=== PATIENT | male | born 1995 | race Caucasian/White ===

== ENCOUNTER 2016-04-19 11:44 | Emergency (ER) | payer BC ==
[2016-04-19] MEDS ORDERED: KETOROLAC 30 MG/ML VIAL (J1885) As Ordered ONE (12:20)
[2016-04-19 12:27] LABS: BASO % 0.1 % (0.0-1.0); EOS # 0.1 K/mm3 (0.0-0.50); EOS % 0.8 % (0.0-3.0); LARGE UNSTAINED CELL # 0.2 K/mm3 (0.0-0.4); LARGE UNSTAINED CELL % 1.4 % (0.0-4.0); LYMPH # 1.1 K/mm3 (1.5-6.5); LYMPH % 9.4 % (24.0-44.0); MEAN CORPUSCULAR HEMOGLOBIN 30.9 pg (27.0-33.0); MEAN CORPUSCULAR HGB CONC 34.2 g/dl (32.0-36.5); MEAN CORPUSCULAR VOLUME 90.3 fl (80.0-96.0); MONO # 0.6 K/mm3 (0.0-0.8); MONO % 4.8 % (0.0-5.0); NEUTROPHILS # 9.8 K/mm3 (1.8-7.7); NEUTROPHILS % 83.5 % (36.0-66.0); PLATELET COUNT, AUTOMATED 253 k/mm3 (150-450); RED CELL DISTRIBUTION WIDTH 11.5 % (11.5-14.5); WHITE BLOOD COUNT 11.8 K/mm3 (4.0-10.0)
[2016-04-19 12:51] LABS: ALBUMIN 4.3 GM/DL (3.2-5.2); ALBUMIN/GLOBULIN RATIO 1.26 (1.00-1.93); ALKALINE PHOSPHATASE 99 U/L (45-117); ALT/SGPT 29 U/L (12-78); AMYLASE 62 U/L (25-115); ANION GAP 7 MEQ/L (8-16); AST/SGOT 23 U/L (15-37); BILIRUBIN,DIRECT 0.2 MG/DL (0.0-0.2); BILIRUBIN,TOTAL 0.7 MG/DL (0.2-1.0); BLOOD UREA NITROGEN 20 MG/DL (7-18); CALCIUM LEVEL 8.8 MG/DL (8.5-10.1); CARBON DIOXIDE LEVEL 29 MEQ/L (21-32); CHLORIDE LEVEL 104 MEQ/L (98-107); CREATININE FOR GFR 1.13 MG/DL (0.70-1.30); GLUCOSE, FASTING 115 MG/DL (70-105); POTASSIUM SERUM 3.7 MEQ/L (3.5-5.1); SODIUM LEVEL 140 MEQ/L (136-145); TOTAL PROTEIN 7.7 GM/DL (6.4-8.2)
[2016-04-19] MEDS ORDERED: ISOVUE-370 76% 100ML VIAL (Q9967) As Ordered ONE (13:04)
--- NOTE | 2016-04-19 13:33 | REP ---
CT STUDY OF THE ABDOMEN AND PELVIS WITHOUT ORAL BUT WITH IV CONTRAST: HISTORY: Question early appendicitis. Abdominal pain. Generalized upper abdominal pain. Comparison CT study is from January 16, 2015 done at [facility]. CT CONTRAST DOSE: 100 mL of Isovue-[address] FINDINGS: Digital cuff presser radiograph is unremarkable. The lung bases are clear. The liver and the spleen are homogeneous in texture. The spleen is borderline in size measuring 12.5 cm in greatest dimension. Gallbladder and pancreas are unremarkable. No adrenal lesion is seen. The kidneys enhance symmetrically and are morphologically intact. No retroperitoneal mass or adenopathy is seen. Small and large intestinal bowel loops are normal in the abdomen and pelvis. Seminal vesicles, prostate, and urinary bladder are intact and unremarkable. No abdominal wall defect is seen. A normal appendix is seen in the right pelvis. There is no inflammation, fluid distension, or wall thickening to suggest appendicitis. No free fluid is seen. No evidence of free air seen. IMPRESSION: Borderline size spleen, 12.5 cm. Normal appendix seen. Otherwise, unremarkable CT study of the abdomen and pelvis with IV contrast. Signed by Myron Atkins MD 04/19/2016 02:35 P
--- NOTE | 2016-04-19 13:52 | EDDOCDS ---
Physician Documentation [facility] Name: Ford Pulido Age: 20 yrs Sex: Male : 1995 Arrival Date: 04/19/2016 Time: 11:44 Bed I4 / M4 Private MD: Rubén Mcintyre Disposition: 04/19/16 13:38 Discharged to Home/Self Care. Impression: Unspecified abdominal pain. - Condition is Stable. - Discharge Instructions: Abdominal Pain, Adult. - Medication Reconciliation, Local Pharmacy Hours form. - Follow up: Rubén Mcintyre; When: As needed; Reason: Recheck today's complaints, Continuance of care. Follow up: Emergency Department; When: As needed; Reason: Fever > 102F, Worsening of conditions. - Problem is new. - Symptoms have improved. - Notes: avoid contact sports for the next few weeks due to borderline enlarged spleen seen on CT scan. call to schedule a follow up appointment for a recheck with Dr. Mcintyre. return to ER if worsening symptoms Historical: - Allergies: No known drug Allergies; - Home Meds: 1. none - PMHx: none; - PSHx: none; - Social history: Smoking status: Patient states was never smoker of tobacco. No barriers to communication noted, The patient speaks fluent Latvian, Speaks appropriately for age. - Family history: Not pertinent. - : The pt / caregiver states he / she is not on anticoagulants. Home medication list is obtained from the patient, family members. - Exposure Risk Screening:: None identified. Vital Signs: 04/19 11:46 BP 120 / 83; Pulse 108; Resp 18 S; Temp 96.6(O); Pulse Ox 100% on R/A; Weight 58.97 kg gr2 / 130.01 lbs (R); Height 5 ft. 6 in. (167.64 cm) (R); Pain 8/10; 12:56 Pain 0/10; ck1 13:44 BP 110 / 68; Pulse 94; Resp 16; Temp 99.0; Pulse Ox 99% ; Pain 0/10; jam1 11:46 Body Mass Index 20.98 (58.97 kg, 167.64 cm) gr2 MDM: 12:06 Undress patient appropriately for examination ordered. ar2 12:06 IV Saline Lock ordered. ar2 12:06 NS 0.9% 1000 ml IV at bolus once ordered. ar2 12:06 ketorolac 30 mg IVP once ordered. ar2 12:08 Amylase Ordered. EDMS 12:08 Basic Metabolic Profile Ordered. EDMS 12:08 CBC with Diff Ordered. EDMS 12:08 Lipase Ordered. EDMS 12:08 Liver Profile Ordered. EDMS 12:08 NOTHING BY MOUTH+DIET ordered. EDMS 12:55 [facility] Payment Agreement was scanned into [employer] and attached to record. jp5 12:56 Financial registration complete. jp5 12:59 Basic Metabolic Profile Reviewed. ar2 12:59 CBC with Diff Reviewed. ar2 12:59 Amylase Reviewed. ar2 12:59 Lipase Reviewed. ar2 12:59 Liver Profile Reviewed. ar2 13:01 CT ABD & PELVIS: IV Contrast Only Ordered. EDMS Administered Medications: 12:24 Drug: NS 0.9% 1000 ml [sodium chloride 0.9 % intravenous solution] Route: IV; Rate: ck1 bolus; Site: right antecubital; 13:51 Follow up: IV Status: Completed infusion; IV Intake: 1000ml [facility] 12:24 Drug: ketorolac 30 mg [ketorolac 30 mg/mL (1 mL) injection solution (1 mL)] Route: IVP; ck1 Site: right antecubital; 12:56 Follow up: Pain 0/10 Adult; Response: Pain is resolved ck1 Signatures: Dispatcher [employer] Maria Esther Gerard RN MAXI [facility] Kaitlynn Cage RN RN ck1 Jerome Fall PA-C PADilma ar2 Deonna Tyler RN RN 1 Jeffery Dominguez jp5 The chart was reviewed and I authenticate all verbal orders and agree with the evaluation and treatment provided.Attachments: 12:55 [facility] Payment Agreement jp5 MTDD
--- NOTE | 2016-04-19 13:52 | EDDOCDS ---
Nurse's Notes [facility] Name: Ford Pulido Age: 20 yrs Sex: Male : 1995 Arrival Date: 04/19/2016 Time: 11:44 Bed I4 / M4 Private MD: Rubén Mcintyre Diagnosis: Unspecified abdominal pain Presentation: 04/19 11:54 Presenting complaint: Patient states: this morning around 830 had abdominal pains and hs1 an hour later intensified and patient states and is now constant. Patient points to upper right quadrant. Risk factors: the patient reports not having a history of previous torsion. Adult Sepsis Screening: The patient does not have new or worsening altered mentation. Patient's respiratory rate is less than 22. Systolic blood pressure is greater than 100. Patient has a qSOFA score of 0- Negative Sepsis Screen. Suicide/Homicide risk assessment- the patient denies having any suicidal and/or homicidal ideations and does not present with any other emotional, behavioral or mental health complaints. Status: Patient is not a hr shared services consultant or dependent. Transition of care: patient was not received from another setting of care. 11:54 Acuity: ANAID Level 3 hs1 11:54 Method Of Arrival: Walkin/Carried/Asstd hs1 Triage Assessment: 11:56 General: Appears in no apparent distress, Behavior is appropriate for age, cooperative. hs1 Pain: Location: left upper quadrant Pain currently is 8 out of 10 on a pain scale. Pt Declines HIV testing. Neurological: No deficits noted. Respiratory: No deficits noted. GI: Denies nausea, vomiting. Derm: Skin is pink, warm & dry. normal. Historical: - Allergies: No known drug Allergies; - Home Meds: 1. none - PMHx: none; - PSHx: none; - Social history: Smoking status: Patient states was never smoker of tobacco. No barriers to communication noted, The patient speaks fluent South African, Speaks appropriately for age. - Family history: Not pertinent. - : The pt / caregiver states he / she is not on anticoagulants. Home medication list is obtained from the patient, family members. - Exposure Risk Screening:: None identified. Screenin:18 Screening information is obtained from the patient. Fall risk: No risks identified. ck1 Assistance ADL's: requires no assistance with activities of daily living. Abuse/DV Screen: The patient / caregiver reports he/she is: not in a situation that causes fear, pain or injury. Nutritional screening: No deficits noted. Advance Directives: Currently, there is no health care proxy. home support is adequate. Assessment: 12:19 General: Appears in no apparent distress, comfortable, Behavior is appropriate for age, ck1 cooperative. Pain: Location: abdomen Pain currently is 8 out of 10 on a pain scale. Neurological: Level of Consciousness is awake, alert, obeys commands, Oriented to person, place, time. Respiratory: Respiratory effort is unlabored, Respiratory pattern is regular, symmetrical. GI: Abdomen is flat, non- distended Bowel sounds present X 4 quads. Abd is soft and non tender X 4 quads. GI: Denies diarrhea, nausea, vomiting. Derm: Skin is intact, is healthy with good turgor, Skin is pink, warm & dry. Musculoskeletal: No deficits noted. 12:55 General: Appears in no apparent distress, comfortable, Behavior is appropriate for age, ck1 cooperative. Pain: Denies pain. Neurological: Level of Consciousness is awake, alert, obeys commands, Oriented to person, place, time. Respiratory: No deficits noted. GI: Denies nausea, vomiting. Derm: Skin is pink, warm & dry. 13:48 General: Appears uncomfortable, Behavior is cooperative. Pain: Location: abdomen Pain mcp currently is 3 out of 10 on a pain scale. Neurological: Level of Consciousness is awake, alert, Oriented to person, place, time. Respiratory: Airway is patent Respiratory effort is even, unlabored. GI: Abdomen is non- distended. Derm: Skin is pink, warm & dry. Vital Signs: 11:46 BP 120 / 83; Pulse 108; Resp 18 S; Temp 96.6(O); Pulse Ox 100% on R/A; Weight 58.97 kg gr2 (R); Height 5 ft. 6 in. (167.64 cm) (R); Pain 8/10; 12:56 Pain 0/10; ck1 13:44 BP 110 / 68; Pulse 94; Resp 16; Temp 99.0; Pulse Ox 99% ; Pain 0/10; jam1 11:46 Body Mass Index 20.98 (58.97 kg, 167.64 cm) gr2 Vitals: 11:46 Log In Time: April 19, 2016 at 11:46. gr2 ED Course: 11:45 Patient visited by Naila Easton. gr2 11:45 Patient moved to Waiting gr2 11:46 Rubén Mcintyre is Private Physician. gr2 11:48 Patient visited by Naila Easton. gr2 11:48 Patient moved to Pre RCE gr2 11:56 Triage Initiated hs1 11:57 Jerome Fall PA-C is PHCP. ar2 11:57 Patient moved to Triage 3 hs1 11:58 Emilia Mack MD is Attending Physician. ar2 11:58 Patient visited by Jerome Fall PA-C. ar2 12:05 Patient moved to I4 / M4 dem1 12:18 Amylase Sent. ck1 12:18 Basic Metabolic Profile Sent. ck1 12:18 CBC with Diff Sent. ck1 12:18 Lipase Sent. ck1 12:18 Liver Profile Sent. ck1 12:18 Inserted saline lock: 20 gauge in right antecubital area and blood collected. The ck1 patient tolerated the procedure well. 12:19 The patient / caregiver is instructed regarding the plan of care and ED course. ck1 12:23 Patient visited by Kaitlynn Cage RN. ck1 12:53 Pt greeted and oriented to ED. Patient advised of names of staff involved in care, jam1 location of call jama, wait times and NPO status. Patient has correct armband on for positive identification. Placed in gown. Bed in low position. Call light in reach. 12:55 Patient visited by Kaitlynn Cage RN. ck1 12:55 REPLACED BY [facility] Payment Agreement was scanned into [employer] and attached to record. jp5 13:06 Patient has correct armband on for positive identification. Bed in low position. Call jam1 light in reach. Side rails up X 1. Door closed. 13:21 Patient name changed from Ford\S\W\S\Pulido\S\ to Ford\S\Jm\S\Pulido. EDMS 13:38 Rubén Mcintyre is Referral Physician. ar2 13:50 Discontinued lock intact, bleeding controlled, pressure dressing applied, No mcp redness/swelling at site. No procedures done that require assistance. Administered Medications: 12:24 Drug: NS 0.9% 1000 ml [sodium chloride 0.9 % intravenous solution] Route: IV; Rate: ck1 bolus; Site: right antecubital; 13:51 Follow up: IV Status: Completed infusion; IV Intake: 1000ml [facility] 12:24 Drug: ketorolac 30 mg [ketorolac 30 mg/mL (1 mL) injection solution (1 mL)] Route: IVP; ck1 Site: right antecubital; 12:56 Follow up: Pain 0/10 Adult; Response: Pain is resolved ck1 Intake: 13:51 IV: 1000.00ml; Total: 1000.00ml. mcp Order Results: Lab Order: Amylase; 04/19/16 12:16 Test: AMYLASE; Value: 62; Range: 25-115; Units: U/L; Status: F Lab Order: Basic Metabolic Profile; 04/19/16 12:16 Test: GLUCOSE, FASTING; Value: 115; Range: 70-105; Abnormal: Above high normal; Units: MG/DL; Status: F Test: BLOOD UREA NITROGEN; Value: 20; Range: 7-18; Abnormal: Above high normal; Units: MG/DL; Status: F Test: CREATININE FOR GFR; Value: 1.13; Range: 0.70-1.30; Units: MG/DL; Status: F Test: SODIUM LEVEL; Value: 140; Range: 136-145; Units: MEQ/L; Status: F Test: POTASSIUM SERUM; Value: 3.7; Range: 3.5-5.1; Units: MEQ/L; Status: F Test: CHLORIDE LEVEL; Value: 104; Range: 98-107; Units: MEQ/L; Status: F Test: CARBON DIOXIDE LEVEL; Value: 29; Range: 21-32; Units: MEQ/L; Status: F Test: ANION GAP; Value: 7; Range: 8-16; Abnormal: Below low normal; Units: MEQ/L; Status: F Test: CALCIUM LEVEL; Value: 8.8; Range: 8.5-10.1; Units: MG/DL; Status: F Lab Order: CBC with Diff; 04/19/16 12:16 Test: WHITE BLOOD COUNT; Value: 11.8; Range: 4.0-10.0; Abnormal: Above high normal; Units: K/mm3; Status: F Test: RED BLOOD COUNT; Value: 5.09; Range: 4.30-6.10; Units: M/mm3; Status: F Test: HEMOGLOBIN; Value: 15.7; Range: 14.0-18.0; Units: g/dl; Status: F Test: HEMATOCRIT; Value: 45.9; Range: 42.0-52.0; Units: %; Status: F Test: MEAN CORPUSCULAR VOLUME; Value: 90.3; Range: 80.0-96.0; Units: fl; Status: F Test: MEAN CORPUSCULAR HEMOGLOBIN; Value: 30.9; Range: 27.0-33.0; Units: pg; Status: F Test: MEAN CORPUSCULAR HGB CONC; Value: 34.2; Range: 32.0-36.5; Units: g/dl; Status: F Test: RED CELL DISTRIBUTION WIDTH; Value: 11.5; Range: 11.5-14.5; Units: %; Status: F Test: PLATELET COUNT, AUTOMATED; Value: 253; Range: 150-450; Units: k/mm3; Status: F Test: NEUTROPHILS %; Value: 83.5; Range: 36.0-66.0; Abnormal: Above high normal; Units: %; Status: F Test: LYMPH %; Value: 9.4; Range: 24.0-44.0; Abnormal: Below low normal; Units: %; Status: F Test: MONO %; Value: 4.8; Range: 0.0-5.0; Units: %; Status: F Test: EOS %; Value: 0.8; Range: 0.0-3.0; Units: %; Status: F Test: BASO %; Value: 0.1; Range: 0.0-1.0; Units: %; Status: F Test: LARGE UNSTAINED CELL %; Value: 1.4; Range: 0.0-4.0; Units: %; Status: F Test: NEUTROPHILS #; Value: 9.8; Range: 1.8-7.7; Abnormal: Above high normal; Units: K/mm3; Status: F Test: LYMPH #; Value: 1.1; Range: 1.5-6.5; Abnormal: Below low normal; Units: K/mm3; Status: F Test: MONO #; Value: 0.6; Range: 0.0-0.8; Units: K/mm3; Status: F Test: EOS #; Value: 0.1; Range: 0.0-0.50; Units: K/mm3; Status: F Test: BASO #; Value: 0.0; Range: 0.0-0.2; Units: K/mm3; Status: F Test: LARGE UNSTAINED CELL #; Value: 0.2; Range: 0.0-0.4; Units: K/mm3; Status: F Lab Order: Lipase; SPEC'M 04/19/16 12:16 Test: LIPASE; Value: 161; Range: 73-393; Units: U/L; Status: F Lab Order: Liver Profile; SPEC' 04/19/16 12:16 Test: AST/SGOT; Value: 23; Range: 15-37; Units: U/L; Status: F Test: ALT/SGPT; Value: 29; Range: 12-78; Units: U/L; Status: F Test: ALKALINE PHOSPHATASE; Value: 99; Range: 45-117; Units: U/L; Status: F Test: BILIRUBIN,TOTAL; Value: 0.7; Range: 0.2-1.0; Units: MG/DL; Status: F Test: BILIRUBIN,DIRECT; Value: 0.2; Range: 0.0-0.2; Units: MG/DL; Status: F Test: TOTAL PROTEIN; Value: 7.7; Range: 6.4-8.2; Units: GM/DL; Status: F Test: ALBUMIN; Value: 4.3; Range: 3.2-5.2; Units: GM/DL; Status: F Test: ALBUMIN/GLOBULIN RATIO; Value: 1.26; Range: 1.00-1.93; Status: F Outcome: 13:38 Discharge ordered by Provider. ar2 13:50 Discharge Assessment: patient administered narcotics - no. The following High Risk mcp Discharge criteria are identified: None. Discharged to home ambulatory, with parent. Condition: stable. Discharge instructions given to patient, Instructed on discharge instructions, follow up and referral plans. Demonstrated understanding of instructions, Pt was receptive of discharge instructions/ teaching. CT Study completed. Property sent home with patient. 13:52 Patient left the ED. mcp Signatures: Dispatcher [employer] EDMS Maria Esther Hearn, RN RN mcp Francisca Roque, NICK LINUX ADMIN [email or web address] Kaitlynn Cage RN RN ck1 Jerome Fall PA-C PA-C ar2 Deonna Tyler RN RN hs1 Heena Rider1 Naila Easton2 Jeffery Dominguez jp5 MTDD
--- NOTE | 2016-04-21 14:52 | EDDOCDS ---
Physician Documentation [facility] Name: Ford Pulido Age: 20 yrs Sex: Male : 1995 Arrival Date: 04/19/2016 Time: 11:44 Bed I4 / M4 Private MD: Rubén Mcintyre Disposition: 04/19/16 13:38 Discharged to Home/Self Care. Impression: Unspecified abdominal pain. - Condition is Stable. - Discharge Instructions: Abdominal Pain, Adult. - Medication Reconciliation, Local Pharmacy Hours form. - Follow up: Rubén Mcintyre; When: As needed; Reason: Recheck today's complaints, Continuance of care. Follow up: Emergency Department; When: As needed; Reason: Fever > 102F, Worsening of conditions. - Problem is new. - Symptoms have improved. - Notes: avoid contact sports for the next few weeks due to borderline enlarged spleen seen on CT scan. call to schedule a follow up appointment for a recheck with Dr. Mcintyre. return to ER if worsening symptoms Historical: - Allergies: No known drug Allergies; - Home Meds: 1. none - PMHx: none; - PSHx: none; - Social history: Smoking status: Patient states was never smoker of tobacco. No barriers to communication noted, The patient speaks fluent Swedish, Speaks appropriately for age. - Family history: Not pertinent. - : The pt / caregiver states he / she is not on anticoagulants. Home medication list is obtained from the patient, family members. - Exposure Risk Screening:: None identified. Vital Signs: 04/19 11:46 BP 120 / 83; Pulse 108; Resp 18 S; Temp 96.6(O); Pulse Ox 100% on R/A; Weight 58.97 kg gr2 / 130.01 lbs (R); Height 5 ft. 6 in. (167.64 cm) (R); Pain 8/10; 12:56 Pain 0/10; ck1 13:44 BP 110 / 68; Pulse 94; Resp 16; Temp 99.0; Pulse Ox 99% ; Pain 0/10; jam1 11:46 Body Mass Index 20.98 (58.97 kg, 167.64 cm) gr2 MDM: 12:06 Undress patient appropriately for examination ordered. ar2 12:06 IV Saline Lock ordered. ar2 12:06 NS 0.9% 1000 ml IV at bolus once ordered. ar2 12:06 ketorolac 30 mg IVP once ordered. ar2 12:08 Amylase Ordered. EDMS 12:08 Basic Metabolic Profile Ordered. EDMS 12:08 CBC with Diff Ordered. EDMS 12:08 Lipase Ordered. EDMS 12:08 Liver Profile Ordered. EDMS 12:08 NOTHING BY MOUTH+DIET ordered. EDMS 12:55 [facility] Payment Agreement was scanned into [employer] and attached to record. jp5 12:56 Financial registration complete. jp5 12:59 Basic Metabolic Profile Reviewed. ar2 12:59 CBC with Diff Reviewed. ar2 12:59 Amylase Reviewed. ar2 12:59 Lipase Reviewed. ar2 12:59 Liver Profile Reviewed. ar2 13:01 CT ABD & PELVIS: IV Contrast Only Ordered. EDAL 04/20 14:13 T-Sheet-- Draft Copy was scanned into [employer] and attached to record. 14:13 Radiology Report was scanned into [employer] and attached to record. gb Administered Medications: 04/19 12:24 Drug: NS 0.9% 1000 ml [sodium chloride 0.9 % intravenous solution] Route: IV; Rate: ck1 bolus; Site: right antecubital; 13:51 Follow up: IV Status: Completed infusion; IV Intake: 1000ml [facility] 12:24 Drug: ketorolac 30 mg [ketorolac 30 mg/mL (1 mL) injection solution (1 mL)] Route: IVP; ck1 Site: right antecubital; 12:56 Follow up: Pain 0/10 Adult; Response: Pain is resolved ck1 Signatures: Dispatcher [employer] EDMaria Esther Lo RN RN [facility] Radha Roth, Reg Reg Kaitlynn Cage RN RN ck1 Jerome Fall PADilma PADilma ar2 Deonna Tyler RN RN hs1 Jeffery Dominguez jp5 The chart was reviewed and I authenticate all verbal orders and agree with the evaluation and treatment provided.Attachments: 12:55 [facility] Payment Agreement 5 04/20 14:13 T-Sheet-- Draft Copy gb Chart Complete MTDD
--- NOTE | 2016-04-21 14:52 | EDDOCDS ---
Nurse's Notes [facility] Name: Ford Pulido Age: 20 yrs Sex: Male : 1995 Arrival Date: 04/19/2016 Time: 11:44 Bed I4 / M4 Private MD: Rubén Mcintyre Diagnosis: Unspecified abdominal pain Presentation: 04/19 11:54 Presenting complaint: Patient states: this morning around 830 had abdominal pains and hs1 an hour later intensified and patient states and is now constant. Patient points to upper right quadrant. Risk factors: the patient reports not having a history of previous torsion. Adult Sepsis Screening: The patient does not have new or worsening altered mentation. Patient's respiratory rate is less than 22. Systolic blood pressure is greater than 100. Patient has a qSOFA score of 0- Negative Sepsis Screen. Suicide/Homicide risk assessment- the patient denies having any suicidal and/or homicidal ideations and does not present with any other emotional, behavioral or mental health complaints. Status: Patient is not a business services associate or dependent. Transition of care: patient was not received from another setting of care. 11:54 Acuity: ANAID Level 3 hs1 11:54 Method Of Arrival: Walkin/Carried/Asstd hs1 Triage Assessment: 11:56 General: Appears in no apparent distress, Behavior is appropriate for age, cooperative. hs1 Pain: Location: left upper quadrant Pain currently is 8 out of 10 on a pain scale. Pt Declines HIV testing. Neurological: No deficits noted. Respiratory: No deficits noted. GI: Denies nausea, vomiting. Derm: Skin is pink, warm & dry. normal. Historical: - Allergies: No known drug Allergies; - Home Meds: 1. none - PMHx: none; - PSHx: none; - Social history: Smoking status: Patient states was never smoker of tobacco. No barriers to communication noted, The patient speaks fluent Albanian, Speaks appropriately for age. - Family history: Not pertinent. - : The pt / caregiver states he / she is not on anticoagulants. Home medication list is obtained from the patient, family members. - Exposure Risk Screening:: None identified. Screenin:18 Screening information is obtained from the patient. Fall risk: No risks identified. ck1 Assistance ADL's: requires no assistance with activities of daily living. Abuse/DV Screen: The patient / caregiver reports he/she is: not in a situation that causes fear, pain or injury. Nutritional screening: No deficits noted. Advance Directives: Currently, there is no health care proxy. home support is adequate. Assessment: 12:19 General: Appears in no apparent distress, comfortable, Behavior is appropriate for age, ck1 cooperative. Pain: Location: abdomen Pain currently is 8 out of 10 on a pain scale. Neurological: Level of Consciousness is awake, alert, obeys commands, Oriented to person, place, time. Respiratory: Respiratory effort is unlabored, Respiratory pattern is regular, symmetrical. GI: Abdomen is flat, non- distended Bowel sounds present X 4 quads. Abd is soft and non tender X 4 quads. GI: Denies diarrhea, nausea, vomiting. Derm: Skin is intact, is healthy with good turgor, Skin is pink, warm & dry. Musculoskeletal: No deficits noted. 12:55 General: Appears in no apparent distress, comfortable, Behavior is appropriate for age, ck1 cooperative. Pain: Denies pain. Neurological: Level of Consciousness is awake, alert, obeys commands, Oriented to person, place, time. Respiratory: No deficits noted. GI: Denies nausea, vomiting. Derm: Skin is pink, warm & dry. 13:48 General: Appears uncomfortable, Behavior is cooperative. Pain: Location: abdomen Pain mcp currently is 3 out of 10 on a pain scale. Neurological: Level of Consciousness is awake, alert, Oriented to person, place, time. Respiratory: Airway is patent Respiratory effort is even, unlabored. GI: Abdomen is non- distended. Derm: Skin is pink, warm & dry. Vital Signs: 11:46 BP 120 / 83; Pulse 108; Resp 18 S; Temp 96.6(O); Pulse Ox 100% on R/A; Weight 58.97 kg gr2 (R); Height 5 ft. 6 in. (167.64 cm) (R); Pain 8/10; 12:56 Pain 0/10; ck1 13:44 BP 110 / 68; Pulse 94; Resp 16; Temp 99.0; Pulse Ox 99% ; Pain 0/10; jam1 11:46 Body Mass Index 20.98 (58.97 kg, 167.64 cm) gr2 Vitals: 11:46 Log In Time: April 19, 2016 at 11:46. gr2 ED Course: 11:45 Patient visited by Naila Easton. gr2 11:45 Patient moved to Waiting gr2 11:46 Rubén Mcintyre is Private Physician. gr2 11:48 Patient visited by Naila Easton. gr2 11:48 Patient moved to Pre RCE gr2 11:56 Triage Initiated hs1 11:57 Jerome Fall PA-C is PHCP. ar2 11:57 Patient moved to Triage 3 hs1 11:58 Emilia Mack MD is Attending Physician. ar2 11:58 Patient visited by Jerome Fall PA-C. ar2 12:05 Patient moved to I4 / M4 dem1 12:18 Amylase Sent. ck1 12:18 Basic Metabolic Profile Sent. ck1 12:18 CBC with Diff Sent. ck1 12:18 Lipase Sent. ck1 12:18 Liver Profile Sent. ck1 12:18 Inserted saline lock: 20 gauge in right antecubital area and blood collected. The ck1 patient tolerated the procedure well. 12:19 The patient / caregiver is instructed regarding the plan of care and ED course. ck1 12:23 Patient visited by Kaitlynn Cage RN. ck1 12:53 Pt greeted and oriented to ED. Patient advised of names of staff involved in care, jam1 location of call jama, wait times and NPO status. Patient has correct armband on for positive identification. Placed in gown. Bed in low position. Call light in reach. 12:55 Patient visited by Kaitlynn Cage RN. ck1 12:55 [facility] Payment Agreement was scanned into [employer] and attached to record. jp5 13:06 Patient has correct armband on for positive identification. Bed in low position. Call jam1 light in reach. Side rails up X 1. Door closed. 13:21 Patient name changed from Ford\S\W\S\Pulido\S\ to Ford\S\Jm\S\Pulido. EDMS 13:38 Rubén Mcintyre is Referral Physician. ar2 13:50 Discontinued lock intact, bleeding controlled, pressure dressing applied, No mcp redness/swelling at site. No procedures done that require assistance. 13:59 CT ABD & PELVIS: IV Contrast Only Returned. EDMS 04/20 14:13 T-Sheet-- Draft Copy was scanned into [employer] and attached to record. 14:13 Radiology Report was scanned into [employer] and attached to record. gb Administered Medications: 04/19 12:24 Drug: NS 0.9% 1000 ml [sodium chloride 0.9 % intravenous solution] Route: IV; Rate: ck1 bolus; Site: right antecubital; 13:51 Follow up: IV Status: Completed infusion; IV Intake: 1000ml [facility] 12:24 Drug: ketorolac 30 mg [ketorolac 30 mg/mL (1 mL) injection solution (1 mL)] Route: IVP; ck1 Site: right antecubital; 12:56 Follow up: Pain 0/10 Adult; Response: Pain is resolved ck1 Intake: 13:51 IV: 1000.00ml; Total: 1000.00ml. mcp Order Results: Lab Order: Amylase; SPEC'M 04/19/16 12:16 Test: AMYLASE; Value: 62; Range: 25-115; Units: U/L; Status: F Lab Order: Basic Metabolic Profile; SPEC'M 04/19/16 12:16 Test: GLUCOSE, FASTING; Value: 115; Range: 70-105; Abnormal: Above high normal; Units: MG/DL; Status: F Test: BLOOD UREA NITROGEN; Value: 20; Range: 7-18; Abnormal: Above high normal; Units: MG/DL; Status: F Test: CREATININE FOR GFR; Value: 1.13; Range: 0.70-1.30; Units: MG/DL; Status: F Test: SODIUM LEVEL; Value: 140; Range: 136-145; Units: MEQ/L; Status: F Test: POTASSIUM SERUM; Value: 3.7; Range: 3.5-5.1; Units: MEQ/L; Status: F Test: CHLORIDE LEVEL; Value: 104; Range: 98-107; Units: MEQ/L; Status: F Test: CARBON DIOXIDE LEVEL; Value: 29; Range: 21-32; Units: MEQ/L; Status: F Test: ANION GAP; Value: 7; Range: 8-16; Abnormal: Below low normal; Units: MEQ/L; Status: F Test: CALCIUM LEVEL; Value: 8.8; Range: 8.5-10.1; Units: MG/DL; Status: F Lab Order: CBC with Diff; SPEC'M 04/19/16 12:16 Test: WHITE BLOOD COUNT; Value: 11.8; Range: 4.0-10.0; Abnormal: Above high normal; Units: K/mm3; Status: F Test: RED BLOOD COUNT; Value: 5.09; Range: 4.30-6.10; Units: M/mm3; Status: F Test: HEMOGLOBIN; Value: 15.7; Range: 14.0-18.0; Units: g/dl; Status: F Test: HEMATOCRIT; Value: 45.9; Range: 42.0-52.0; Units: %; Status: F Test: MEAN CORPUSCULAR VOLUME; Value: 90.3; Range: 80.0-96.0; Units: fl; Status: F Test: MEAN CORPUSCULAR HEMOGLOBIN; Value: 30.9; Range: 27.0-33.0; Units: pg; Status: F Test: MEAN CORPUSCULAR HGB CONC; Value: 34.2; Range: 32.0-36.5; Units: g/dl; Status: F Test: RED CELL DISTRIBUTION WIDTH; Value: 11.5; Range: 11.5-14.5; Units: %; Status: F Test: PLATELET COUNT, AUTOMATED; Value: 253; Range: 150-450; Units: k/mm3; Status: F Test: NEUTROPHILS %; Value: 83.5; Range: 36.0-66.0; Abnormal: Above high normal; Units: %; Status: F Test: LYMPH %; Value: 9.4; Range: 24.0-44.0; Abnormal: Below low normal; Units: %; Status: F Test: MONO %; Value: 4.8; Range: 0.0-5.0; Units: %; Status: F Test: EOS %; Value: 0.8; Range: 0.0-3.0; Units: %; Status: F Test: BASO %; Value: 0.1; Range: 0.0-1.0; Units: %; Status: F Test: LARGE UNSTAINED CELL %; Value: 1.4; Range: 0.0-4.0; Units: %; Status: F Test: NEUTROPHILS #; Value: 9.8; Range: 1.8-7.7; Abnormal: Above high normal; Units: K/mm3; Status: F Test: LYMPH #; Value: 1.1; Range: 1.5-6.5; Abnormal: Below low normal; Units: K/mm3; Status: F Test: MONO #; Value: 0.6; Range: 0.0-0.8; Units: K/mm3; Status: F Test: EOS #; Value: 0.1; Range: 0.0-0.50; Units: K/mm3; Status: F Test: BASO #; Value: 0.0; Range: 0.0-0.2; Units: K/mm3; Status: F Test: LARGE UNSTAINED CELL #; Value: 0.2; Range: 0.0-0.4; Units: K/mm3; Status: F Lab Order: Lipase; [facility] 04/19/16 12:16 Test: LIPASE; Value: 161; Range: 73-393; Units: U/L; Status: F Lab Order: Liver Profile; [facility] 04/19/16 12:16 Test: AST/SGOT; Value: 23; Range: 15-37; Units: U/L; Status: F Test: ALT/SGPT; Value: 29; Range: 12-78; Units: U/L; Status: F Test: ALKALINE PHOSPHATASE; Value: 99; Range: 45-117; Units: U/L; Status: F Test: BILIRUBIN,TOTAL; Value: 0.7; Range: 0.2-1.0; Units: MG/DL; Status: F Test: BILIRUBIN,DIRECT; Value: 0.2; Range: 0.0-0.2; Units: MG/DL; Status: F Test: TOTAL PROTEIN; Value: 7.7; Range: 6.4-8.2; Units: GM/DL; Status: F Test: ALBUMIN; Value: 4.3; Range: 3.2-5.2; Units: GM/DL; Status: F Test: ALBUMIN/GLOBULIN RATIO; Value: 1.26; Range: 1.00-1.93; Status: F Radiology Order: CT ABD & PELVIS: IV Contrast Only Test: CT ABD & PELVIS: IV Contrast Only REASON FOR EXAMINATION: r/o early appy;Abd. Pain - Generalized, Nn-focal Exam; CT STUDY OF THE ABDOMEN AND PELVIS WITHOUT ORAL BUT WITH IV CONTRAST:; ; HISTORY: Question early appendicitis. Abdominal pain. Generalized upper; abdominal pain.; ; Comparison CT study is from January 16, 2015 done at [facility].; ; CT CONTRAST DOSE: 100 mL of Isovue-370 is administered intravenously.; ; CT FINDINGS: Digital sock liner radiograph is unremarkable. The lung bases are; clear. The liver and the spleen are homogeneous in texture. The spleen is; borderline in size measuring 12.5 cm in greatest dimension. Gallbladder and; pancreas are unremarkable. No adrenal lesion is seen. The kidneys enhance; symmetrically and are morphologically intact. No retroperitoneal mass or; adenopathy is seen. Small and large intestinal bowel loops are normal in the; abdomen and pelvis. Seminal vesicles, prostate, and urinary bladder are intact; and unremarkable. No abdominal wall defect is seen. A normal appendix is seen; in the right pelvis. There is no inflammation, fluid distension, or wall; thickening to suggest appendicitis. No free fluid is seen. No evidence of free; air seen.; ; IMPRESSION:; ; Borderline size spleen, 12.5 cm. Normal appendix seen. Otherwise, unremarkable; CT study of the abdomen and pelvis with IV contrast.; ; ; Signed by; Myron Atkins MD 04/19/2016 02:35 P; Outcome: 13:38 Discharge ordered by Provider. ar2 13:50 Discharge Assessment: patient administered narcotics - no. The following High Risk [facility] Discharge criteria are identified: None. Discharged to home ambulatory, with parent. Condition: stable. Discharge instructions given to patient, Instructed on discharge instructions, follow up and referral plans. Demonstrated understanding of instructions, Pt was receptive of discharge instructions/ teaching. CT Study completed. Property sent home with patient. 13:52 Patient left the ED. [facility] Signatures: Dispatcher [employer] EDMS Maria Esther Hearn RN RN Francisca Waller, NEUROPSYCHIATRIC AIDE NEUROPSYCHIATRIC AIDE jam1 Radha Roth, Reg Reg Kaitlynn AvilaRN RN ck1 Jerome Fall, PA-Desi PA-C ar2 Deonna Tyler RN RN hs1 Heena Rider dem1 Naila Easton gr2 Jeffery Dominguez jp5 Chart Complete MTDD
--- NOTE | 2016-04-21 14:52 | EDDOCDS ---
Physician Documentation [facility] Name: Ford Pulido Age: 20 yrs Sex: Male : 1995 Arrival Date: 04/19/2016 Time: 11:44 Bed I4 / M4 Private MD: Rubén Mcintyre Disposition: 04/19/16 13:38 Discharged to Home/Self Care. Impression: Unspecified abdominal pain. - Condition is Stable. - Discharge Instructions: Abdominal Pain, Adult. - Medication Reconciliation, Local Pharmacy Hours form. - Follow up: Rubén Mcintyre; When: As needed; Reason: Recheck today's complaints, Continuance of care. Follow up: Emergency Department; When: As needed; Reason: Fever > 102F, Worsening of conditions. - Problem is new. - Symptoms have improved. - Notes: avoid contact sports for the next few weeks due to borderline enlarged spleen seen on CT scan. call to schedule a follow up appointment for a recheck with Dr. Mcintyre. return to ER if worsening symptoms Historical: - Allergies: No known drug Allergies; - Home Meds: 1. none - PMHx: none; - PSHx: none; - Social history: Smoking status: Patient states was never smoker of tobacco. No barriers to communication noted, The patient speaks fluent Belarusian, Speaks appropriately for age. - Family history: Not pertinent. - : The pt / caregiver states he / she is not on anticoagulants. Home medication list is obtained from the patient, family members. - Exposure Risk Screening:: None identified. Vital Signs: 04/19 11:46 BP 120 / 83; Pulse 108; Resp 18 S; Temp 96.6(O); Pulse Ox 100% on R/A; Weight 58.97 kg gr2 / 130.01 lbs (R); Height 5 ft. 6 in. (167.64 cm) (R); Pain 8/10; 12:56 Pain 0/10; ck1 13:44 BP 110 / 68; Pulse 94; Resp 16; Temp 99.0; Pulse Ox 99% ; Pain 0/10; jam1 11:46 Body Mass Index 20.98 (58.97 kg, 167.64 cm) gr2 MDM: 12:06 Undress patient appropriately for examination ordered. ar2 12:06 IV Saline Lock ordered. ar2 12:06 NS 0.9% 1000 ml IV at bolus once ordered. ar2 12:06 ketorolac 30 mg IVP once ordered. ar2 12:08 Amylase Ordered. EDMS 12:08 Basic Metabolic Profile Ordered. EDMS 12:08 CBC with Diff Ordered. EDMS 12:08 Lipase Ordered. EDMS 12:08 Liver Profile Ordered. EDMS 12:08 NOTHING BY MOUTH+DIET ordered. EDMS 12:55 [facility] Payment Agreement was scanned into [employer] and attached to record. jp5 12:56 Financial registration complete. jp5 12:59 Basic Metabolic Profile Reviewed. ar2 12:59 CBC with Diff Reviewed. ar2 12:59 Amylase Reviewed. ar2 12:59 Lipase Reviewed. ar2 12:59 Liver Profile Reviewed. ar2 13:01 CT ABD & PELVIS: IV Contrast Only Ordered. EDMD 04/20 14:13 T-Sheet-- Draft Copy was scanned into [employer] and attached to record. 14:13 Radiology Report was scanned into [employer] and attached to record. gb Administered Medications: 04/19 12:24 Drug: NS 0.9% 1000 ml [sodium chloride 0.9 % intravenous solution] Route: IV; Rate: ck1 bolus; Site: right antecubital; 13:51 Follow up: IV Status: Completed infusion; IV Intake: 1000ml [facility] 12:24 Drug: ketorolac 30 mg [ketorolac 30 mg/mL (1 mL) injection solution (1 mL)] Route: IVP; ck1 Site: right antecubital; 12:56 Follow up: Pain 0/10 Adult; Response: Pain is resolved ck1 Signatures: Dispatcher [employer] EDMaria Esther Lo RN RN [facility] Radha Roth, Reg Reg Kaitlynn Cage RN RN ck1 Jerome Fall PADilma PADilma ar2 Deonna Tyler RN RN hs1 Jeffery Dominguez jp5 The chart was reviewed and I authenticate all verbal orders and agree with the evaluation and treatment provided.Attachments: 12:55 [facility] Payment Agreement 5 04/20 14:13 T-Sheet-- Draft Copy gb Chart Complete MTDD
== END 2016-04-19 13:52 | disposition home or self-care (01) ==
LOC: M ED 11:44
DX: R10.84 Generalized abdominal pain (principal); R93.3 Abnormal findings on diagnostic imaging of other parts of digestive tract
CPT/HCPCS: 36415; 74177; 80048; 80076; 82150; 83690; 85025; 96361; 96374; 99284; J1885; Q9967